=== PATIENT | female | born 1955 | race Caucasian/White ===

== ENCOUNTER 2017-07-11 22:52 | Emergency (ER) | payer OTHER ==
[2017-07-12 00:51] LABS: AMPHETAMINE/METHAMPHETAMINE NEG (NEG); BARBITURATES POS (NEG); BENZODIAZEPINES NEG (NEG); CANNABINOIDS NEG (NEG); COCAINE NEG (NEG); ETHANOL, URINE NEG (NEG); METHADONE NEG (NEG); OPIATES NEG (NEG); PHENCYCLIDINE NEG (NEG)
[2017-07-12] MEDS: traMADol 50 MG TABLET PO (00:59)
== END 2017-07-12 01:40 | disposition home or self-care (01) ==
LOC: ER 07-12 01:40
DX: S52.121A Displaced fracture of head of right radius, initial encounter for closed fracture (principal); S60.212A Contusion of left wrist, initial encounter; M25.571 Pain in right ankle and joints of right foot; M25.531 Pain in right wrist; E11.9 Type 2 diabetes mellitus without complications; E78.00 Pure hypercholesterolemia, unspecified; I10 Essential (primary) hypertension; E03.9 Hypothyroidism, unspecified; G43.909 Migraine, unspecified, not intractable, without status migrainosus; Z90.710 Acquired absence of both cervix and uterus; Z88.5 Allergy status to narcotic agent; W18.39XA Other fall on same level, initial encounter; Y93.89 Activity, other specified; Y92.69 Other specified industrial and construction area as the place of occurrence of the external cause; Y99.8 Other external cause status
CPT/HCPCS: 73080; 73110; 73610; 80307; 99285

== ENCOUNTER 2017-07-12 11:47 | Emergency (ER) | payer OTHER ==
[2017-07-12] MEDS: ACETAMINOPHEN 325 MG TABLET. PO (12:30)
[2017-07-12] MEDS: fentaNYL PF VIAL 100 MCG/2 ML VIAL IM (14:17)
== END 2017-07-12 15:09 | disposition home or self-care (01) ==
LOC: ER 11:47
DX: S62.112D Displaced fracture of triquetrum [cuneiform] bone, left wrist, subsequent encounter for fracture with routine healing (principal); S52.122D Displaced fracture of head of left radius, subsequent encounter for closed fracture with routine healing; E11.9 Type 2 diabetes mellitus without complications; E03.9 Hypothyroidism, unspecified; E78.00 Pure hypercholesterolemia, unspecified; G43.909 Migraine, unspecified, not intractable, without status migrainosus; F17.200 Nicotine dependence, unspecified, uncomplicated; I10 Essential (primary) hypertension; Z88.5 Allergy status to narcotic agent; W01.0XXD Fall on same level from slipping, tripping and stumbling without subsequent striking against object, subsequent encounter
CPT/HCPCS: 96372; 99284; J3010

== ENCOUNTER → 2018-11-03 | Outpatient (CLI) | payer OTHER ==
[2017-07-12 14:02] VITALS: BP 157/76
[~2018-11-03] MED LIST: HYDR-2761 PO; TRAM50TA PO
--- NOTE | 2018-11-03 07:46 | RAD ---
Indication: Left neck swelling and pain. Enlarged lymph nodes. TECHNIQUE: Limited exam of the neck soft tissue COMPARISON: None FINDINGS: 1.1 x 0.4 x 0.9 cm mildly enlarged lymph node is seen in the deep left neck soft tissue. Other 0.7 x 0.4 x 0.7 cm nonenlarged lymph node in the deep neck soft tissue. Both lymph nodes demonstrate fatty hilum. IMPRESSION: Mildly enlarged deep left neck soft tissue lymph node, nonspecific may be reactive. Follow-up ultrasound recommended in short-term. Electronically signed by: Marlo Luis DO (11/03/2018 7:43 AM) [facility]
== END | disposition home or self-care (01) ==
LOC: US 06:37
PROVIDERS: ATTEND Internal Medicine
DX: R59.0 Localized enlarged lymph nodes (principal)
CPT/HCPCS: 76536